=== PATIENT | female | born 1975 | race Two or more races ===

== ENCOUNTER 2023-05-27 09:34 | Emergency (ER) | payer BC, OTHER ==
[~2023-05-27] VITALS: Ht 167.6 cm; Wt 136.5 kg
[2023-05-27] MEDS ORDERED: IBU600T PO (12:08)
[2023-05-27 12:24] VITALS: BP 111/65; PULSE 80; RESP 18; TEMP 97.4; O2SAT 97
== END 2023-05-27 12:25 | disposition home or self-care (01) ==
LOC: ER 09:34
DX: S76.811A Strain of other specified muscles, fascia and tendons at thigh level, right thigh, initial encounter (principal); W19.XXXA Unspecified fall, initial encounter; Y93.89 Activity, other specified; Y92.89 Other specified places as the place of occurrence of the external cause; Y99.8 Other external cause status
CPT/HCPCS: 93971

== ENCOUNTER 2023-08-07 05:31 | Emergency (ER) | payer BC ==
[~2023-08-07] VITALS: Ht 170.2 cm; Wt 134.2 kg
[~2023-08-07 05:31] MED LIST: IBU600T PO
[2023-08-07] MEDS: HYDROcodone-ACET 5/325MG TAB PO ONE (09:08)
[2023-08-07] MEDS: KETOROLAC TROMETH 60MG/2ML VIAL IM ONE (09:14)
[2023-08-07 12:09] VITALS: BP 158/91; PULSE 76; RESP 18; TEMP 98; O2SAT 98
== END 2023-08-07 12:25 | disposition home or self-care (01) ==
LOC: ER 05:31
DX: M12.88 Other specific arthropathies, not elsewhere classified, other specified site (principal); Z79.899 Other long term (current) drug therapy
CPT/HCPCS: 72040; 73030; 96372; 99284; J1885